=== PATIENT | male | born 1980 | race Caucasian/White ===

== ENCOUNTER → 2017-05-13 | Outpatient (CLI) | payer OTHER ==
[~2017-05-13] MED LIST: OXYC-57 PO
== END | disposition home or self-care (01) ==
LOC: C.PATHSPEC 14:55
PROVIDERS: ATTEND Urology
DX: Z30.2 Encounter for sterilization (principal)

== ENCOUNTER 2017-10-11 20:04 | Emergency (ER) | payer OTHER ==
[~2017-10-11] VITALS: Ht 188 cm; Wt 80.5 kg
[2017-10-11 20:10] VITALS: TEMP 36.8; Ht 188 cm; Wt 80.5 kg
[2017-10-11] MEDS ORDERED: ACETAMINOPHEN 500 MG TAB PO STA (20:25)
[2017-10-11] MEDS ORDERED: DIPHTHERIA/TETANUS/PERTUSSIS 0.5 ML SYR/VIAL IM. ONE (20:30)
[2017-10-11] MEDS ORDERED: LIDO/EPINEPHRINE/SOD BICARB 20 ML VIAL INFIL ONE (20:30)
--- NOTE | 2017-10-11 20:32 | EMERGENCY ROOM VISIT NOTE ---
ED Visit Note First contact with patient: 20:16 CHIEF COMPLAINT: Facial laceration HISTORY OF PRESENT ILLNESS: This 37-year-old man patient presents emergency department by private vehicle complaining of a laceration to the forehead that occurred approximately 6:30 PM tonight. 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 He denies any loss of consciousness. He reports a mild headache , but denies any vision changes, nausea or vomiting, neck pain. He denies any confusion. There is moderate bleeding. The patient rates the pain as throbbing and 1/10. He did not take any medications for his pain. The patient' s tetanus shot is not up to date. REVIEW OF SYSTEMS: A 6 system review of systems was completed with positives and pertinent negatives listed in the HPI. ALLERGIES: No known allergy MEDICATIONS: No medication PMH: No significant past medical or surgical history SOCIAL HISTORY: Lives at home. Denies tobacco use. PHYSICAL EXAM: Vital Signs: Reviewed Nurse's notes, vital signs stable. GENERAL : Pleasant and cooperative, in no acute distress, well-developed, well- nourished. NEURO: The patient is alert and oriented to person place and time. No focal neurological defects. EYES: Pupils are round, equal, and react to light. EOMI. EARS: No hemotympanum. NECK: Supple. No cervical spine tenderness. FACE: No facial bone tenderness or mandibular tenderness. The mouth can open fully. The teeth are well aligned. No loose or chipped teeth. SKIN: There is a 2 cm laceration on the mid upper forehead. The edges gape apart with traction. There is moderate active bleeding and no foreign material in the wound. There are no deep structures present. Capillary refill less than two seconds. Normal sensation to light and sharp touch. EMERGENCY DEPARTMENT COURSE: I examined the patient. Verbal consent was obtained to perform the procedure. Using sterile technique the wound was cleansed with Betadine. The area was sterilely draped. 1.5 ml of 1% buffered lidocaine with epinephrine was used to anesthetize the laceration on the forehead. Once the patient was anesthetized, the wound was copiously irrigated under pressure with sterile saline. The wound was explored and was as described above. The laceration was repaired using 3 subcuticular 6-0 Vicryl sutures with the wound edges being well approximated, and the skin was then closed with 3 layers of Dermabond. The patient tolerated the procedure well. Hemostasis was achieved. The area was cleaned with sterile saline and dressed with bacitracin ointment. The patient was given Boostrix immunization. The patient was educated regarding wound care, follow-up, and return precautions, he verbalized understanding. The patient was discharged home in good condition. Current/Historical Medications Scheduled Oxycodone/Acetaminophen 5MG/325MG (Percocet 5MG/325MG), 1 TAB PO Q4HR PRN Miscellaneous Medications None (Patient States No Home Meds) Allergies Coded Allergies: No Known Allergies (Unverified Allergy, Mild, 10/14/06) Vital Signs Date Time Temp Pulse Resp B/P (MAP) Pulse Ox O2 Delivery O2 Flow Rate FiO2 10/11/17 21:30 61 16 123/81 98 Room Air 10/11/17 20:10 36.8 64 20 123/83 97 Room Air Medications Administered Medications (Trade) Dose Ordered Sig/Amadou Route Start Time Stop Time Status Last Admin Dose Admin Acetaminophen (Tylenol Tab) 1,000 mg NOW STAT PO 10/11/17 20:25 10/11/17 20:28 DC 10/11/17 20:39 1,000 MG Diphtheria/ Pertussis/Tetanus Vacc (Adacel Inj) 0.5 ml ONCE ONCE IM. 10/11/17 20:30 10/11/17 20:31 DC 10/11/17 20:38 0.5 ML Departure Information Impression Primary Impression: Forehead laceration Dispostion Home / Self-Care Condition GOOD Referrals No Doctor, Assigned (PCP) Patient Instructions ED Laceration Facial Sutr Tape, [facility] Additional Instructions You were evaluated and treated in the emergency department for your head injury and facial laceration. The laceration was repaired using a dissolving suture that will not need to be removed, and the skin was closed with Dermabond (skin glue). The Dermabond should fall off naturally over the next 5-7 days. Do not pick at the glue, and do not apply ointments or lotions to the glue. You may wash over the area with soap and water, but do not scrub over the glued area. Pat dry after washing. Keep covered when in sun until the wound is fully healed, then SPF 50 or higher for one year. Vitamin E oil if desired two weeks after the glue has fallen off for reduction of scar. Please seek immediate medical attention for any signs of infection (increasing redness, swelling, pus drainage, streaking up the arm, fever/chills). Problem Qualifiers Primary Impression: Forehead laceration Encounter type: initial encounter Qualified Codes: S01.81XA - Laceration without foreign body of other part of head, initial encounter
[2017-10-11 21:30] VITALS: BP 123/81; PULSE 61; O2SAT 98
== END 2017-10-11 21:30 | disposition home or self-care (01) ==
LOC: C.EDB 20:04 → C.EDD 21:30
DX: S01.81XA Laceration without foreign body of other part of head, initial encounter (principal); W21.03XA Struck by baseball, initial encounter; Y93.64 Activity, baseball; Z23 Encounter for immunization